=== PATIENT | male | born 1975 | race Two or more races ===

== ENCOUNTER 2019-01-24 14:28 | Emergency (ER) | payer SELFPAY ==
[~2019-01-24] VITALS: Ht 162.6 cm; Wt 66.7 kg
[2019-01-24] MEDS ORDERED: IV NORMAL SALINE 1,000ML 1,000 ML IV SCH (14:35)
[2019-01-24] MEDS ORDERED: IPRATRPIUM/ALBUTEROL 0.5/2.5MG 3 ML NEBU. NEB ONE (14:45)
--- NOTE | 2019-01-24 14:58 | EKG ---
[address] [address] Test Date: 2019-01-24 Test Time: 14:45:26 Pat Name: LILIYA LEDEZMA Department: Room: Gender: M Cherry Dipper: : 1975 Requested By: FREDY SHAFFER Order Number: [id number] Reading MD: Jeison Sanchez Measurements Intervals [place] Rate: 50 P: 55 PA: 168 QRS: 51 QRSD: 88 T: 19 QT: 420 QTc: 382 Interpretive Statements SINUS RHYTHM Electronically Signed On 01-28-2019 11:06:53 PROCESS LINE OPERATOR by Jeison Sanchez
--- NOTE | 2019-01-24 15:02 | RAD ---
EXAM: CHEST 1 VIEW History: Drug overdose COMPARISON: None available. TECHNIQUE: Single portable radiograph of the chest FINDINGS: The cardiac silhouette is unremarkable. The lungs are clear bilaterally. The costophrenic sulci are clear and well demarcated. IMPRESSION: No radiographic evidence of an acute cardiopulmonary process. Electronically signed by: James Contreras MD (01/24/2019 2:59 PM) [facility]
[2019-01-24] MEDS ORDERED: ALBU2.5V8 INH (15:34)
[2019-01-24] MEDS ORDERED: BENZ100C PO (15:34)
[2019-01-24] MEDS ORDERED: AZIT250T PO (15:34)
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
[2019-01-24 15:50] VITALS: BP 107/68
== END 2019-01-24 15:50 | disposition left against medical advice (07) ==
LOC: ER 14:28
DX: T40.2X1A Poisoning by other opioids, accidental (unintentional), initial encounter (principal); T42.4X1A Poisoning by benzodiazepines, accidental (unintentional), initial encounter; R40.20 Unspecified coma; G93.89 Other specified disorders of brain; J20.9 Acute bronchitis, unspecified; G89.29 Other chronic pain; M25.511 Pain in right shoulder; F17.210 Nicotine dependence, cigarettes, uncomplicated; Y92.098 Other place in other non-institutional residence as the place of occurrence of the external cause
CPT/HCPCS: 71045; 93005; 94640; 99284; J7620

== ENCOUNTER 2020-06-06 12:24 | Inpatient (IN) | payer MEDICAID ==
[~2020-06-06] VITALS: Ht 160 cm; Wt 57.5 kg
[~2020-06-06 12:24] MED LIST: ALBU2.5V8 INH; ALPR1TAB2 PO; AMOX500T PO; AZIT250T PO; BENZ100C PO; DICL50TA4 PO; METH10TA2 PO; OXYC30TA64 PO
[2020-06-06] MEDS ORDERED: IV NORMAL SALINE 1,000ML 1,000 ML IV SCH ×2 (13:28→18:29)
[2020-06-06] MEDS ORDERED: HALOPERIDOL LACT 5 MG/ML VIAL. IVP ONE (13:45)
[2020-06-06 14:03] LABS: BASO # 0.1 x10^3/uL (0.0-0.2); BASO % 1 % (0-3); EOS % 0 % (0-3); HEMATOCRIT 44.3 % (39.0-53.0); HEMOGLOBIN 15.1 g/dL (13.0-17.5); LYMPH # 2.5 x10^3/uL (1.0-4.8); LYMPH % 20 % (24-48); MEAN CORPUSCULAR HEMOGLOBIN 30 pg (25-35); MEAN CORPUSCULAR HGB CONC 34 g/dL (31-37); MEAN CORPUSCULAR VOLUME 88 fL (79-100); MONO # 1.2 x10^3/uL (0.0-1.1); MONO % 9 % (0-9); NEUT # 8.7 x10^3uL (1.8-7.7); NEUT % 70 % (31-73); PLATELET COUNT 280 x10^3/uL (140-400); RED BLOOD COUNT 5.02 x10^6/uL (4.30-5.70); RED CELL DISTRIBUTION WIDTH 13.9 % (11.5-14.5); WHITE BLOOD COUNT 12.5 x10^3/uL (4.0-11.0)
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
[2020-06-06 14:15] LABS: CALCIUM 8.8 mg/dL (8.5-10.1); CREATININE 1.1 mg/dL (0.7-1.3); GFR 72.1; POTASSIUM 3.6 mmol/L (3.5-5.1)
[2020-06-06 14:19] LABS: ACETAMIN < 2.0 mcg/mL (10-30); ETHANOL < 10 mg/dL (0-10); SALIC < 2.8 mg/dL (2.8-20.0)
[2020-06-06 14:20] LABS: ALBUMIN 3.4 g/dL (3.4-5.0); DIRECT BILIRUBIN 0.5 mg/dL (0.0-0.2); MAGNESIUM 2.4 mg/dL (1.8-2.4); TOTAL BILIRUBIN 1.6 mg/dL (0.2-1.0); TOTAL PROTEIN 6.4 g/dL (6.4-8.2)
[2020-06-06 14:53] LABS: BARBITURATES NEG (NEG); BENZODIAZEPINES NEG (NEG); CANNABINOIDS NEG (NEG); COCAINE NEG (NEG); METHADONE NEG (NEG); OPIATES POS (NEG); PHENCYCLIDINE NEG (NEG)
[2020-06-06 14:56] LABS: AMPHETAMINE/METHAMPHETAMINE NEG (NEG)
[2020-06-06 15:05] LABS: BILIRUBIN,URINE NEG (NEG); CLARITY,URINE HAZY; COLOR,URINE AMBER; GLUCOSE,URINE 500 mg/dL (NEG); NITRITE,URINE POS (NEG)
[2020-06-06 15:09] LABS: AMORPHOUS SEDIMENT,UR PRESENT /HPF; BACTERIA,URINE FEW /HPF (0-FEW); HYALINE CASTS, URINE OCC /HPF; SQUAMOUS EPITHELIAL CELL,UR OCC /LPF
[2020-06-06] MEDS ORDERED: cefTRIAXone SODIUM 1 GM VIAL ONE (16:33)
[2020-06-06] MEDS ORDERED: IV NORMAL SALINE 50ML 50 ML ONE (16:33)
[2020-06-06] MEDS ORDERED: ZIPRASIDONE IM 20 MG VIAL. IM ONE (16:45)
[2020-06-06] MEDS ORDERED: ONDANSETRON PF 4 MG/2 ML VIAL. IVP PRN ×2 (17:15→18:30)
[2020-06-06] MEDS: IV NORMAL SALINE 1,000ML 1,000 ML IV SCH ×2 (18:41→21:01)
[2020-06-06] MEDS: HALOPERIDOL LACT 5 MG/ML VIAL. IVP PRN (19:59)
[2020-06-06 21:01] VITALS: BP 153/86
[2020-06-06 22:01] VITALS: BP 149/56
--- NOTE | 2020-06-06 22:08 | PDOC ---
Exam Note: Jerrod Note: Please also refer to the separate dictated note~for this date of service dictated separately.~Patient seen individually. Discussed the patient with Nursing staff reviewed the chart.~Reviewed interim history and current functioning. Reviewed vital signs,~Labs/ Radiology~and current medications noted below. Continue current treatment with the changes noted in the dictated addendum note Assessment: Vital Signs/I&O: Vital Signs Date Time Temp Pulse Resp B/P (MAP) Pulse Ox O2 Delivery O2 Flow Rate FiO2 06/06/20 21:01 98 26 153/86 (108) Room Air 06/06/20 20:00 98.5 06/06/20 19:00 95 Labs: Laboratory Tests Test 06/06/20 11:23 06/06/20 13:47 06/06/20 16:29 Urine Collection Type Unknown Urine Color [place] Urine Clarity Hazy Urine pH 5.5 Urine Specific [place] 1.025 Urine Protein Neg (NEG-TRACE) Urine Glucose (UA) 500 mg/dL (NEG) Urine Ketones (Stick) Trace mg/dL (NEG) Urine Blood Neg (NEG) Urine Nitrite Pos (NEG) Urine Bilirubin Neg (NEG) Urine Urobilinogen Dipstick 2.0 mg/dL (0.2 mg/dL) Urine Leukocyte Esterase Neg (NEG) Urine RBC 1-2 /HPF (0-2) Urine WBC 1-4 /HPF (0-4) Urine Squamous Epithelial Cells Occ /LPF Urine Amorphous Sediment Present /HPF Urine Bacteria Few /HPF (0-FEW) Urine Hyaline Casts Occ /HPF Urine Mucus Slight /LPF Urine Opiates Screen Pos (NEG) Urine Methadone Screen Neg (NEG) Urine Barbiturates Neg (NEG) Urine Phencyclidine Screen Neg (NEG) Urine Amphetamine/Methamphetamine Neg (NEG) Urine Benzodiazepines Screen Neg (NEG) Urine Cocaine Screen Neg (NEG) Urine Cannabinoids Screen Neg (NEG) Urine Ethyl Alcohol Neg (NEG) White Blood Count 12.5 x10^3/uL (4.0-11.0) H Red Blood Count 5.02 x10^6/uL (4.30-5.70) Hemoglobin 15.1 g/dL (13.0-17.5) Hematocrit 44.3 % (39.0-53.0) Mean Corpuscular Volume 88 fL (79-100) Mean Corpuscular Hemoglobin 30 pg (25-35) Mean Corpuscular Hemoglobin Concent 34 g/dL (31-37) Red Cell Distribution Width 13.9 % (11.5-14.5) Platelet Count 280 x10^3/uL (140-400) Neutrophils (%) (Auto) 70 % (31-73) Lymphocytes (%) (Auto) 20 % (24-48) L Monocytes (%) (Auto) 9 % (0-9) Eosinophils (%) (Auto) 0 % (0-3) Basophils (%) (Auto) 1 % (0-3) Neutrophils # (Auto) 8.7 x10^3uL (1.8-7.7) H Lymphocytes # (Auto) 2.5 x10^3/uL (1.0-4.8) Monocytes # (Auto) 1.2 x10^3/uL (0.0-1.1) H Eosinophils # (Auto) 0.0 x10^3/uL (0.0-0.7) Basophils # (Auto) 0.1 x10^3/uL (0.0-0.2) Prothrombin Time 11.6 SEC (9.4-11.4) H Prothrombin Time INR 1.1 (0.9-1.1) Activated Partial Thromboplast Time 29 SEC (23-33) Sodium Level 140 mmol/L (136-145) Potassium Level 3.6 mmol/L (3.5-5.1) Chloride Level 102 mmol/L (98-107) Carbon Dioxide Level 30 mmol/L (21-32) Anion Gap 8 (6-14) Blood Urea Nitrogen 14 mg/dL (8-26) Creatinine 1.1 mg/dL (0.7-1.3) Estimated GFR (Cockcroft-Gault) 72.1 Glucose Level 171 mg/dL (70-99) H Calcium Level 8.8 mg/dL (8.5-10.1) Magnesium Level 2.4 mg/dL (1.8-2.4) Total Bilirubin 1.6 mg/dL (0.2-1.0) H Direct Bilirubin 0.5 mg/dL (0.0-0.2) H Aspartate Amino Transferase (AST) 116 U/L (15-37) H Alanine Aminotransferase (ALT) 233 U/L (16-63) H Alkaline Phosphatase 80 U/L (46-116) Total Protein 6.4 g/dL (6.4-8.2) Albumin 3.4 g/dL (3.4-5.0) Salicylates Level < 2.8 mg/dL (2.8-20.0) L Salicylate Last Dose Date Unknown Salicylate Last Dose Time Unknown Acetaminophen Level < 2.0 mcg/mL (10-30) L Acetaminophen Last Dose Date Unknown Acetaminophen Last Dose Time Unknown Ethyl Alcohol Level < 10 mg/dL (0-10) Lactic Acid Level 2.2 mmol/L (0.4-2.0) H Current Medications: Meds: Current Medications Medications (Trade) Dose Ordered Sig/Kathy Route PRN Reason Start Time Stop Time Status Last Admin Dose Admin Sodium Chloride 1,000 ml @ 1,000 mls/hr Q1H IV 06/06/20 13:28 06/06/20 14:27 DC 06/06/20 13:48 Haloperidol Lactate (Haldol) 5 mg 1X ONCE IVP 06/06/20 13:45 06/06/20 13:46 DC 06/06/20 13:50 Lorazepam (Ativan Inj) 2 mg 1X ONCE IVP 06/06/20 14:15 06/06/20 14:16 DC 06/06/20 14:15 Lorazepam (Ativan Inj) 2 mg 1X ONCE IVP 06/06/20 15:00 06/06/20 15:01 DC 06/06/20 15:03 Ceftriaxone Sodium 1 gm/ Sodium Chloride 50 ml @ 100 mls/hr 1X ONCE IV 06/06/20 16:30 06/06/20 16:59 DC 06/06/20 16:36 Ziprasidone (Geodon Im) 20 mg 1X ONCE IM 06/06/20 16:45 06/06/20 16:46 DC 06/06/20 16:55 Sodium Chloride 1,000 ml @ 125 mls/hr Q8H IV 06/06/20 17:09 06/07/20 17:08 06/06/20 21:01 Haloperidol Lactate (Haldol) 5 mg PRN Q2HR PRN IVP agitation 06/06/20 18:30 06/06/20 19:59 Lorazepam (Ativan Inj) 2 mg [id number] PRN IVP ANXIETY / AGITATION 06/06/20 18:30 06/06/20 19:19 DC 06/06/20 18:41 Lorazepam (Ativan Inj) 4 mg PRN Q1HR PRN IVP ANXIETY / AGITATION 06/06/20 18:30 06/06/20 21:01 I have reviewed the current psychotropics carefully including drug interactions. Risk benefit ratio favors no change other than as noted in my dictated progress note. Diagnosis: Problems: (1) UTI (urinary tract infection) (2) Acute psychosis (3) Drug-seeking behavior ZULMA SALAS MD Jun 06, 2020 22:08
[2020-06-06 23:00] VITALS: BP 136/91
[2020-06-07] VITALS (22 sets, daily range): BP systolic 113–167; BP diastolic 64–105
[2020-06-07] MEDS: IV NORMAL SALINE 1,000ML 1,000 ML IV SCH (05:30)
[2020-06-07 06:40] LABS: BASO # 0.1 x10^3/uL (0.0-0.2); BASO % 1 % (0-3); EOS # 0.2 x10^3/uL (0.0-0.7); EOS % 1 % (0-3); HEMATOCRIT 43.4 % (39.0-53.0); HEMOGLOBIN 14.8 g/dL (13.0-17.5); LYMPH # 2.1 x10^3/uL (1.0-4.8); LYMPH % 18 % (24-48); MEAN CORPUSCULAR HEMOGLOBIN 30 pg (25-35); MEAN CORPUSCULAR HGB CONC 34 g/dL (31-37); MEAN CORPUSCULAR VOLUME 89 fL (79-100); MONO % 9 % (0-9); NEUT # 8.5 x10^3uL (1.8-7.7); NEUT % 72 % (31-73); PLATELET COUNT 238 x10^3/uL (140-400); RED BLOOD COUNT 4.89 x10^6/uL (4.30-5.70); RED CELL DISTRIBUTION WIDTH 14.1 % (11.5-14.5)
[2020-06-07 06:50] LABS: CREATININE 1.1 mg/dL (0.7-1.3); GFR 72.1; POTASSIUM 3.1 mmol/L (3.5-5.1)
[2020-06-07] MEDS: HALOPERIDOL LACT 5 MG/ML VIAL. IVP PRN ×3 (07:24→12:56)
[2020-06-07] MEDS: POTASSIUM CHLORIDE 10MEQ 100 ML IV SCH ×4 (08:26→11:15)
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
[2020-06-08] VITALS (16 sets, daily range): BP systolic 104–142; BP diastolic 60–84
--- NOTE | 2020-06-08 00:12 | CONS ---
DATE OF CONSULTATION: REFERRING PHYSICIAN: Dr. Donnelly. REASON FOR CONSULTATION: Acute mental status changes. HISTORY OF PRESENT ILLNESS: This is a 45-year-old right-handed male who was admitted through Emergency Room after he became very agitated, hallucinating visually and auditory. The patient apparently has been using heroin, but he ran out about 2 weeks ago. EMS was called by his and transferred the patient to Emergency Room for further evaluation. The patient was very psychotic. It was reported that on 06/02/2020, the patient was seen in the Emergency Room with aggressive behavior changes. He was tried to break into the house today, so the police was called by the neighbors and transferred the patient to Emergency Room for his psychiatric behavior. The patient did not recall the events. Initially, the patient was suffering from shoulder pain, for which he required administration of oxycodone. He ran out of oxycodone a few weeks ago. Therefore, he started taking heroin. It was reported that the patient tried to commit suicide by hanging himself with the bedsheet, but he did not complete the attempt. Currently, the patient has been sedated with Haldol and Ativan for his aggressive behavior. He is not able to communicate properly or responding to verbal commands. PAST MEDICAL HISTORY: Significant for chronic pain and addiction to narcotics, urinary tract infections, history of drug abuse. FAMILY HISTORY: Not obtainable. SOCIAL HISTORY: Not obtainable. ALLERGIES: No known drug allergies. CURRENT MEDICATIONS: In the hospital include antibiotic IV ceftriaxone 1 gram daily, Haldol, lorazepam, Zofran for nausea. REVIEW OF SYSTEMS: Not obtainable. PHYSICAL EXAMINATION: GENERAL: Well-developed, well-nourished male, not in acute distress. He weighs 58.7 kilos. VITAL SIGNS: Blood pressure 125/67, respiratory rate 20, pulse is 75, oxygen saturation is 100% on room air, and temperature 98. HEENT: Normocephalic, atraumatic, otherwise unremarkable. NECK: Supple. Negative for carotid bruit, lymphadenopathy or thyromegaly. LUNGS: Clear to A and P. CARDIOVASCULAR: Regular rate and rhythm, normal S1, S2. ABDOMEN: Soft. Bowel sounds positive. EXTREMITIES: Negative for cyanosis, clubbing or edema. NEUROLOGICAL EXAM: Mental Status: The patient is sedated. He is not able to provide any information. Further evaluation is limited. Cranial Nerves: There is no facial motor or sensory deficit. Hearing appeared to be intact. Further evaluation is limited. Motor examination: No focal muscle bulk was seen. The tone is normal. Difficult to evaluate his strengths as the patient is not cooperative. Sensory examination revealed diminished pinprick and light touch senses throughout the lower extremities in all dermatomes. Deep tendon reflexes were symmetric and hypoactive with absent Achilles responses. Gait not tested at this time. No neuro imaging has been performed as the patient was very agitated. LABORATORY DATA: CBC revealed white blood cells of 12,000, hemoglobin 12.9 with similar 14.8, platelet count is 258,000. Chemistry revealed sodium 142, potassium 3.1, chloride 105, CO2 27, BUN 9, creatinine 1.1, glucose 91, calcium 8. T4 is high at 14.7. Urinalysis positive for nitrites and negative for urine leukocyte esterase. Coagulation is normal. Urine drug screen is positive for opiates. IMPRESSION: 1. Acute encephalopathy, presented with acute psychosis and suicidal ideation, rule out opiate or substance abuse dependency versus withdrawal. 2. Hypokalemia. 3. Multiple psychiatric problems including suicidal ideations, history of anxiety and possible depression complicated with intermittent psychosis. RECOMMENDATIONS: 1. We will continue with current management initiated by Dr. Donnelly. 2. Continue with current psychiatric care initiated by Dr. Harrington. M Landon BAEZA MD DR: DENISE/anthony JOB#: [id number] / [id number]
[2020-06-08 08:19] LABS: ALBUMIN 2.7 g/dL (3.4-5.0); ALBUMIN/GLOBULIN RATIO 0.9 (1.0-1.7); CREATININE 0.9 mg/dL (0.7-1.3); GFR 90.8; POTASSIUM 3.3 mmol/L (3.5-5.1); TOTAL BILIRUBIN 1.6 mg/dL (0.2-1.0); TOTAL PROTEIN 5.6 g/dL (6.4-8.2)
[2020-06-08 08:55] LABS: BASO % 1 % (0-3); EOS % 2 % (0-3); HEMOGLOBIN 14.7 g/dL (13.0-17.5); LYMPH # 1.4 x10^3/uL (1.0-4.8); LYMPH % 17 % (24-48); MEAN CORPUSCULAR HEMOGLOBIN 30 pg (25-35); MEAN CORPUSCULAR HGB CONC 34 g/dL (31-37); MEAN CORPUSCULAR VOLUME 89 fL (79-100); MONO # 0.6 x10^3/uL (0.0-1.1); MONO % 8 % (0-9); NEUT # 5.7 x10^3uL (1.8-7.7); NEUT % 71 % (31-73); PLATELET COUNT 208 x10^3/uL (140-400); RED BLOOD COUNT 4.86 x10^6/uL (4.30-5.70); RED CELL DISTRIBUTION WIDTH 13.5 % (11.5-14.5)
[2020-06-08 08:56] LABS: BASO # 0.1 x10^3/uL (0.0-0.2); EOS # 0.1 x10^3/uL (0.0-0.7)
--- NOTE | 2020-06-08 09:12 | PN ---
DATE: 06/08/2020 ATTENDING PHYSICIAN: Dr. Eldridge. CHIEF COMPLAINT: Bizarre behavior, psychosis, agitation. SUBJECTIVE: He is calmer today. He is still groggy from the sedation. OBJECTIVE FINDINGS: VITAL SIGNS: Her blood pressure today is 142/70 mmHg, pulse is 69 and regular, temperature 98.5 degrees Fahrenheit, and his room air saturations are 98%. HEENT: The head was without trauma. Pupils are reactive. Sclerae are nonicteric. Oropharynx clear. No stridor. NECK: Supple. LUNGS: Shallow respirations otherwise clear. CARDIOVASCULAR: Showed distant heart tones. No gallops. Peripheral pulses are palpable full. ABDOMEN: Soft, scaphoid, nontender, no organomegaly. Bowel sounds are hypoactive. EXTREMITIES: Showed no cyanosis or edema. NEUROLOGIC: The patient is obtunded. He is less agitated, combative. He is still requiring soft restraints to prevent self harm. ASSESSMENT: 1. A 45-year-old gentleman with acute psychosis related to drug use and the narcotic withdrawal. 2. Opioid addiction. 3. Opioid withdrawal. 4. Chronic pain syndrome. 5. Aggressive behavior with potential harm to medical staff himself, requiring restraints. PLAN: 1. We will try to offer him menu and try to get something to eat. 2. IVs have been capped. 3. Blood culture is still pending. 4. Empiric antibiotics. 5. P.r.n. Haldol and Ativan to help calm him down. CHAS ELDRIDGE MD DR: FAYE/anthony JOB#: [id number] / [id number]
[2020-06-08] MEDS: NICOTINE 21MG PATCH. TD SCH (17:14)
--- NOTE | 2020-06-08 18:27 | PN ---
DATE: SUBJECTIVE: The patient denies any new medical or neurological complaints; however, he has been less agitated and less required of Haldol and sedation throughout the day and last night. He is more cooperative. He denies headaches, visual disturbances, chest pain, shortness of breath or palpitation. OBJECTIVE: GENERAL: Well-developed and well-nourished male, not in acute distress. VITAL SIGNS: Blood pressure 128/79, respiratory rate 20, pulse is 85, temperature 98.1, oxygen saturation 100% on room air. HEENT: Normocephalic, atraumatic, otherwise unremarkable. NECK: Supple. Negative for carotid bruit, lymphadenopathy or thyromegaly. LUNGS: Clear to A and P. CARDIOVASCULAR: Regular rate and rhythm, normal S1, S2. ABDOMEN: Soft. Bowel sounds positive. EXTREMITIES: Negative for cyanosis, clubbing or edema. NEUROLOGICAL: Mental Status: The patient is alert and oriented x 2. The speech is fluent. There is no language dysfunction. Memory, judgment, and abstract thinking are fair. The patient denies hallucination or delusion. Cranial nerves are intact. No focal motor or sensory deficit. Deep tendon reflexes were symmetric and hypoactive with absent Achilles responses. Gait not tested. LABORATORY DATA: CBC revealed white blood cells of 8000, hemoglobin 14.7, hematocrit ____. Chemistry revealed a sodium of 139, potassium 3.3, chloride 104, CO2 of 27, BUN 9, creatinine 0.9, glucose is 79. Liver enzymes are elevated. IMPRESSION: 1. Acute encephalopathy, probably drug dependency or drug withdrawal - opiates. 2. Hypokalemia. 3. Elevated liver enzymes, suicidal ideation and attempt, depressions with intermittent psychosis. RECOMMENDATIONS: 1. Continue with current management initiated by Dr. Donnelly. Potassium supplement and continue with current care initiated by Dr. Harrington. 2. Avoid sedation as soon as possible. M Landon BAEZA MD DR: DENISE/anthony JOB#: [id number] / [id number]
[2020-06-09] VITALS (8 sets, daily range): BP systolic 120–152; BP diastolic 64–98
[2020-06-09 07:24] LABS: BASO % 1 % (0-3); EOS # 0.1 x10^3/uL (0.0-0.7); EOS % 2 % (0-3); HEMATOCRIT 42.7 % (39.0-53.0); HEMOGLOBIN 14.3 g/dL (13.0-17.5); LYMPH # 1.2 x10^3/uL (1.0-4.8); LYMPH % 18 % (24-48); MEAN CORPUSCULAR HEMOGLOBIN 30 pg (25-35); MEAN CORPUSCULAR HGB CONC 34 g/dL (31-37); MEAN CORPUSCULAR VOLUME 89 fL (79-100); MONO # 0.6 x10^3/uL (0.0-1.1); MONO % 10 % (0-9); NEUT # 4.6 x10^3uL (1.8-7.7); NEUT % 69 % (31-73); PLATELET COUNT 225 x10^3/uL (140-400); RED BLOOD COUNT 4.81 x10^6/uL (4.30-5.70); RED CELL DISTRIBUTION WIDTH 13.7 % (11.5-14.5); WHITE BLOOD COUNT 6.6 x10^3/uL (4.0-11.0)
[2020-06-09 07:32] LABS: CALCIUM 8.2 mg/dL (8.5-10.1); GFR 80.4; POTASSIUM 3.4 mmol/L (3.5-5.1)
[2020-06-09] MEDS: NICOTINE 21MG PATCH. TD SCH (09:00)
--- NOTE | 2020-06-09 13:01 | PN ---
DATE: SUBJECTIVE: The patient denies any new medical or neurological complaints. OBJECTIVE: GENERAL: Well-developed, well-nourished male, not in acute distress. VITAL SIGNS: Afebrile, temperature is 98.4, oxygen saturation 97% on room air, blood pressure 123/71, respiratory rate 18, pulse is 87 and regular. HEENT: Normocephalic, atraumatic, otherwise unremarkable. NECK: Supple. Negative for carotid bruit, lymphadenopathy or thyromegaly. LUNGS: Clear to A and P. CARDIOVASCULAR: Regular rate and rhythm, normal S1, S2. ABDOMEN: Soft. Bowel sounds positive. EXTREMITIES: Negative for cyanosis, clubbing or edema. NEUROLOGIC EXAM: Mental status: The patient is alert and oriented x 2. The speech is fluent. There is no language dysfunction. Memory, judgment, and abstract thinking are fair. The patient denies hallucination or delusion. Cranial nerves are intact. No focal motor or sensory deficit. The strength was 4/5 throughout. Sensory examination revealed normal pinprick, light touch senses throughout. Deep tendon reflexes were asymmetric and hypoactive with absent Achilles responses. Gait: The stance is steady. IMPRESSION: 1. Acute encephalopathy -- resolved. 2. Opiate dependency and withdrawal. 3. Recent urinary tract infections. 4. Multiple psychiatric problems include suicidal ideation and effect, rule out schizoaffective disorders with intermittent psychotic features. RECOMMENDATIONS: Would continue with current management initiated by Dr. Donnelly and continue with psychiatric care initiated by Dr. Harrington. The patient is neurologically stable. M Landon BAEZA MD DR: DENISE/anthony JOB#: [id number] / [id number]
--- NOTE | 2020-06-09 16:22 | DS ---
DATE OF DISCHARGE: HOSPITAL COURSE: The patient is a 45-year-old male patient who was admitted with bizarre behavior, psychosis, agitation, transpired that he according to him has been abusing heroin and that he was manifestation of acute narcotic withdrawal syndrome. He was seen in consultation by Dr. Harrington and also Dr. Asencio and basically was started also on antibiotic for possible urinary tract infection; however, urine culture was negative. When I saw him today, he was calm and quiet lucid, alert, oriented to time, place and person, although what he says at least about the availability of heroin in the streets, it does not make sense. He otherwise was hemodynamically stable, afebrile. All his lab works apart from slightly elevated total T4 were normal and therefore, a decision was made to discharge him home. PHYSICAL EXAMINATION: GENERAL: When I saw him this afternoon, he looked well and was clearly in no apparent respiratory distress. No pallor, jaundice, cyanosis or thyromegaly. No jugular venous distention. No limb edema. VITAL SIGNS: His heart rate was 87, blood pressure was 123/71, temperature was 98.4, respiratory rate was 18 and oxygen saturation was 97%. HEAD, EYES, EARS, NOSE AND THROAT: Showed normocephalic, atraumatic. NECK: Supple. HEART: Showed normal first and second heart sounds. No gallop or murmur. CHEST: Clear to auscultation. No crepitation or rhonchi. ABDOMEN: Distended, soft, nontender. NEUROLOGIC: He was awake, alert, responding appropriately. All cranial nerves are intact. He moves extremities without difficulty, ambulates without assistance or assistive devices. His intake was 4000, output was 1200. LABORATORY DATA: His lab work this morning showed a white cell count 6600, hemoglobin 14, hematocrit 42, MCV 89 and platelet count of 225,000. Serum sodium was 140, potassium 3.4, chloride 104, bicarbonate 29, anion gap of 7, BUN 10, creatinine 1, estimated GFR was 80 mL per minute. His glucose 166, calcium was 8.2. His total bilirubin, AST and ALT were elevated. Alkaline phosphatase was normal. Total protein was 5.6, albumin was 2.7. His prothrombin time was 11.6, INR 1.1, aPTT was 29. Urinalysis showed large amount of glucose, trace of ketones, negative for blood, positive for nitrite, negative for leukocyte esterase, 1-2 rbc's, 1-4 wbc's, very few bacteria. His toxic screen was positive for opiates. His urine culture was negative. DISCHARGE MEDICATIONS: He was discharged home to continue on trazodone 50 mg at bedtime. He also wanted to quit smoking, so I gave him a prescription for Nicoderm patches 21 mg topically once a day for 2 weeks, 14 mg once a day for 2 weeks, then 7 mg once a day for 2 weeks. FINAL DISCHARGE DIAGNOSES: Drug-induced acute encephalopathy, resolved, opiate dependency and withdrawal, probably schizoaffective disorder with intermittent psychotic features. NO FLORES MD DR: VIKTORIA/anthony JOB#: [id number] / [id number]
[2020-06-09] MEDS ORDERED: LACTOBACILLUS RHAMNOSUS GG 1 CAPSULE. PO SCH (21:00)
== END 2020-06-09 17:15 | disposition home or self-care (01) | DRG 92 ==
LOC: ER 12:24 → MERGE 17:00 → ICU 17:00
PROVIDERS: ADMIT Hospitalist; ATTEND Internal Medicine
DX: G92 Toxic encephalopathy (principal); F11.23 Opioid dependence with withdrawal; N39.0 Urinary tract infection, site not specified; R45.851 Suicidal ideations; E87.6 Hypokalemia; F25.9 Schizoaffective disorder, unspecified; G89.4 Chronic pain syndrome; T50.905A Adverse effect of unspecified drugs, medicaments and biological substances, initial encounter; Z76.5 Malingerer [conscious simulation]; Z87.440 Personal history of urinary (tract) infections; Z87.891 Personal history of nicotine dependence; F41.9 Anxiety disorder, unspecified; Z79.899 Other long term (current) drug therapy
CPT/HCPCS: 36415; 80048; 80053; 80076; 80307; 80329; 81001; 83605; 83735; 84436; 85025; 85610; 85730; 87040; 87086; 96361; 96365; 96372; 96375; G0480; J0696; J1630; J2060; J3480; J3486; 99285-25; J7030

== ENCOUNTER 2020-10-13 14:03 | Emergency (ER) | payer MEDICAID ==
[~2020-10-13] VITALS: Ht 162.6 cm; Wt 63.0 kg
[2020-10-13] MEDS ORDERED: NAPROXEN 500 MG TABLET PO ONE (14:30)
[2020-10-13] MEDS: GABAPENTIN 100 MG CAPSULE. PO ONE ×2 (14:30→14:57)
[2020-10-13] MEDS ORDERED: DIPH,PERTUSS(ACELL),TET VAC/PF 0.5 ML SYRINGE. VAX IM ONE (14:45)
--- NOTE | 2020-10-13 14:52 | RAD ---
Examination: VENOUS LOWER EXTREMITY RIGHT History: cellulitis RLE Comparison/Correlation: None Findings: Right lower extremity venous duplex ultrasound examination was performed. Compression and augmentation are utilized. Right common femoral vein, femoral vein, proximal profunda femoris, popliteal veins, great saphenous vein junction, and visualized calf veins are unremarkable with no evidence of DVT. Impression: No right lower extremity DVT. Electronically signed by: Mitchell Zazueta MD (10/13/2020 2:49 PM) [facility]
--- NOTE | 2020-10-13 15:21 | RAD ---
PROCEDURE: FOOT RIGHT 3V STUDY DATE: 10/13/2020 CLINICAL INDICATION / HISTORY: Reason: redness pain swelling after a scratch / Spl. Instructions: / History: . TECHNIQUE: AP, lateral and oblique views of the right foot. COMPARISON: None FINDINGS: No fracture or dislocation is identified. The bone density is normal. The joint space widths are maintained, and there are no erosions to suggest an inflammatory arthropathy. No soft tissue abnormality is seen. IMPRESSION: No acute osseous abnormality. Electronically signed by: Jovan Traylor MD (10/13/2020 3:18 PM) [id number]
[2020-10-13] MEDS ORDERED: SULF1TAB24 PO (15:45)
[2020-10-13] MEDS ORDERED: DICL50TA2 PO (15:45)
[2020-10-13] MEDS ORDERED: GABA-586 PO (15:45)
--- NOTE | 2020-10-13 15:45 | PHYS DOC ---
Past History Past Medical History: No Pertinent History Additional Past Medical Histor: chronic shoulder pain Past Surgical History: Appendectomy, Other Additional Past Surgical Histo: right shoulder, hernia Smoking: Cigarettes Alcohol Use: Occasionally Drug Use: Other Adult General Chief Complaint Chief Complaint: FOOT INJURY PAIN HPI HPI Patient is a 45-year-old male patient presenting to the ED today complaining of redness on top of the right foot that began 2 days ago after he scratched his foot at work. He works for a [employer]. Denies any fever. Review of Systems Review of Systems Constitutional: Denies fever or chills [] Musculoskeletal: Denies back pain or joint pain [] Integument: Reports redness on the right foot Neurologic: Denies headache, focal weakness or sensory changes [] All other systems were reviewed and found to be within normal limits, except as documented in this note. Current Medications Current Medications Current Medications Medications (Trade) Dose Ordered Sig/Kathy Start Time Stop Time Status Last Admin Dose Admin Diphtheria/ Pertussis/Tetanus Vacc (ADACEL TDap SYRINGE) 0.5 ml ONCE ONCE 10/13/20 14:45 10/13/20 14:46 DC 10/13/20 14:59 0.5 ML Gabapentin (Neurontin) 300 mg 1X ONCE 10/13/20 14:30 10/13/20 14:31 DC Naproxen (Naprosyn) 500 mg 1X ONCE 10/13/20 14:30 10/13/20 14:31 DC 10/13/20 14:57 500 MG Allergies Allergies Allergies Coded Allergies Type Severity Reaction Last Updated Verified No Known Drug Allergies 06/17/20 No Physical Exam Physical Exam Constitutional: Well developed, well nourished, no acute distress, non-toxic appearance. [] Skin: 2 scabbed abrasion noted on the right lateral foot, with redness on top of the right foot consistent with cellulitis, the area is warm and tender to touch. Slight redness noted on the right medial diop. Full range of motion to the right foot and toes. +2 right pedal pulse. Sensation intact to the right toes. Back: No tenderness, no CVA tenderness. [] Extremities: No tenderness, no cyanosis, no clubbing, ROM intact, no edema. [] Neurologic: Alert and oriented X 3, normal motor function, normal sensory function, no focal deficits noted. [] Psychologic: Affect normal, judgement normal, mood normal. [] Current Patient Data Vital Signs Vital Signs Date Time Temp Pulse Resp B/P (MAP) Pulse Ox O2 Delivery O2 Flow Rate FiO2 10/13/20 14:23 98.4 85 18 104/65 (78) 98 Room Air EKG EKG [] Radiology/Procedures Radiology/Procedures Yes []PROCEDURE: FOOT RIGHT 3V PROCEDURE: FOOT RIGHT 3V STUDY DATE: 10/13/2020 CLINICAL INDICATION / HISTORY: Reason: redness pain swelling after a scratch / Spl. Instructions: / History: . TECHNIQUE: AP, lateral and oblique views of the right foot. COMPARISON: None FINDINGS: No fracture or dislocation is identified. The bone density is normal. The joint space widths are maintained, and there are no erosions to suggest an inflammatory arthropathy. No soft tissue abnormality is seen. IMPRESSION: No acute osseous abnormality. Electronically signed by: Kalina Traylor MD (10/13/2020 3:18 PM) [id number] DICTATED AND SIGNED BY: KALINA TRAYLOR MD DATE: 10/13/20 1518 CC: [facility]; ANAIS ABDUL APRN; PCP,NO ~ PROCEDURE: VENOUS LOWER EXTREMITY RIGHT Examination: VENOUS LOWER EXTREMITY RIGHT History: cellulitis RLE Comparison/Correlation: None Findings: Right lower extremity venous duplex ultrasound examination was performed. Compression and augmentation are utilized. Right common femoral vein, femoral vein, proximal profunda femoris, popliteal veins, great saphenous vein junction, and visualized calf veins are unremarkable with no evidence of DVT. Impression: No right lower extremity DVT. Electronically signed by: Mitchell Robles MD (10/13/2020 2:49 PM) [facility] DICTATED AND SIGNED BY: MITCHELL ROBLES MD DATE: 10/13/20 1449 CC: [facility]; ANAIS ABDUL APRN; PCP,NO ~ Heart Score Risk Factors: Risk Factors: DM, Current or recent (<one month) smoker, HTN, HLP, family history of CAD, obesity. Risk Scores: Risk Factors: DM, Current or recent (<one month) smoker, HTN, HLP, family history of CAD, obesity. Course & Med Decision Making Course & Med Decision Making Pertinent Labs and Imaging studies reviewed. (See chart for details) This is a 45-year-old male patient presenting to the ED today with cellulitis on the right foot and slight cellulitis on the right diop. This occurred after he scratched his right foot at work. Right foot x-rays as well as venous Doppler of the right lower extremity negative for any acute findings. Tetanus was updated. Discharged on Bactrim. Provided return precautions. Discharged in stable condition Dragon Disclaimer Dragon Disclaimer This electronic medical record was generated, in whole or in part, using a voice recognition dictation system. Departure Departure: Impression: Primary Impression: Cellulitis of lower extremity Disposition: DC HOME SELF CARE/HOMELESS Condition: STABLE Referrals: PCP,NO (PCP) follow up with your doctor in 1-2 weeks Patient Instructions: Cellulitis Additional Instructions: You have cellulitis of the right lower extremity. Take the prescribed antibiotics until completed. Follow-up with your own doctor in 1 to 2 weeks. Come back to the ED at any point symptoms worsen Scripts Diclofenac Potassium (DICLOFENAC POTASSIUM) 50 Mg Tablet 1 TAB PO BID, #20 TAB 1 Refill Prov: ANAIS ABDUL APRN 10/13/20 Gabapentin (GABAPENTIN ) 300 Mg Capsule 300 MG PO TID for NEUROGENIC PAIN, #30 CAP Prov: ANAIS ABDUL APRN 10/13/20 Sulfamethoxazole/Trimethoprim (BACTRIM DS TABLET) 1 Each Tablet 1 TAB PO BID for 10 Days, #20 TAB 0 Refills Prov: ANAIS ABDUL APRN 10/13/20 Problem Qualifiers Primary Impression: Cellulitis of lower extremity Laterality: right Qualified Codes: L03.115 - Cellulitis of right lower limb ANAIS ABDUL APRN Oct 13, 2020 15:45
[2020-10-13 16:00] VITALS: BP 100/62
[2020-10-13] MEDS ORDERED: SMZ/TMP 800/160MG TABLET. PO ONE (16:00)
== END 2020-10-13 16:00 | disposition home or self-care (01) ==
LOC: ER 14:03
DX: S90.811A Abrasion, right foot, initial encounter (principal); L03.115 Cellulitis of right lower limb; F17.210 Nicotine dependence, cigarettes, uncomplicated; G89.29 Other chronic pain; X58.XXXA Exposure to other specified factors, initial encounter; Y93.89 Activity, other specified; Y92.89 Other specified places as the place of occurrence of the external cause; Y99.0 Civilian activity done for income or pay
CPT/HCPCS: 73630; 90471; 90715; 93971; 99284-25

== ENCOUNTER 2020-11-25 13:19 | Emergency (ER) | payer MEDICAID ==
[~2020-11-25] VITALS: Ht 162.6 cm; Wt 60.0 kg
[~2020-11-25 13:19] MED LIST changes: +DICL50TA2 PO; +GABA-586 PO; +SULF1TAB24 PO
--- NOTE | 2020-11-25 14:07 | PHYS DOC ---
Past History Past Medical History: No Pertinent History Additional Past Medical Histor: chronic shoulder pain Past Surgical History: Appendectomy, Other Additional Past Surgical Histo: HERNIA, SHOULDER Smoking: Cigarettes Alcohol Use: None Drug Use: Other General Adult EDM: Chief Complaint: SORE THROAT HPI: HPI: Patient is a 45-year-old male who presents with sore throat for 2 days. Patient states "I feels like I am swallowing glass ". Patient denies recent illness. Patient denies cough, fever, drainage or ear pain. Patient reports taking an antibiotic that he was prescribed a month ago for a skin infection. Denies taking any rnvt-hbb-[id number] medications for his sore throat. Review of Systems: Review of Systems: Constitutional: Denies fever or chills Eyes: Denies change in visual acuity HENT: Denies nasal congestion, reports sore throat Respiratory: Denies cough or shortness of breath Cardiovascular: Denies chest pain or edema GI: Denies abdominal pain, nausea, vomiting, bloody stools or diarrhea : Denies dysuria Musculoskeletal: Denies back pain or joint pain Integument: Denies rash Neurologic: Denies headache, focal weakness or sensory changes Endocrine: Denies polyuria or polydipsia Lymphatic: Denies swollen glands Psychiatric: Denies depression or anxiety Allergies: Allergies: Allergies Coded Allergies Type Severity Reaction Last Updated Verified No Known Drug Allergies 06/17/20 No Physical Exam: PE: Constitutional: Well developed, well nourished, no acute distress, non-toxic appearance. [] HENT: bilateral external ears normal, oropharynx moist, no oral exudates, able to manage secretions Eyes: PERRLA, EOMI, conjunctiva normal, no discharge. [] Neck: Normal range of motion, tenderness submandibular lymph nodes, no stridor Cardiovascular:Heart rate regular rhythm, no murmur [] Lungs & Thorax: Bilateral breath sounds clear to auscultation [] Abdomen: Bowel sounds normal, soft, no tenderness, no masses, no pulsatile masses. [] Skin: Warm, dry, no erythema, no rash. [] Back: No tenderness, no CVA tenderness. [] Extremities: No tenderness, no cyanosis, no clubbing, ROM intact, no edema. [] Neurologic: Alert and oriented X 3, normal motor function, normal sensory function, no focal deficits noted. [] Psychologic: Affect normal, judgement normal, mood normal. [] Current Patient Data: Vital Signs: Vital Signs Date Time Temp Pulse Resp B/P (MAP) Pulse Ox O2 Delivery O2 Flow Rate FiO2 11/25/20 13:40 96.1 78 18 101/64 (76) 96 Room Air EKG: EKG: [] Radiology/Procedures: Radiology/Procedures: [] Heart Score: Risk Factors: Risk Factors: DM, Current or recent (<one month) smoker, HTN, HLP, family history of CAD, obesity. Risk Scores: Score 0 - 3: 2.5% MACE over next 6 weeks - Discharge Home Score 4 - 6: 20.3% MACE over next 6 weeks - Admit for Clinical Observation Score 7 - 10: 72.7% MACE over next 6 weeks - Early Invasive Strategies Course & Med Decision Making: Course & Med Decision Making Pertinent Labs and Imaging studies reviewed. (See chart for details) []Patient is a 45-year-old male who presents with sore throat for 2 days. Patient states "I feels like I am swallowing glass ". Patient denies recent illness. Patient denies cough, fever, drainage or ear pain. Patient reports taking an antibiotic that he was prescribed a month ago for a skin infection. Denies taking any auog-nwa-mvfghlv medications for his sore throat. Will order rapid test to r/o strep. Rapid test was positive for strep. Will order 1 dose of dexamethasone in ER and sent home with penicillin. Dragon Disclaimer: Dragon Disclaimer: This electronic medical record was generated, in whole or in part, using a voice recognition dictation system. Departure Departure: Impression: Primary Impression: Strep pharyngitis Disposition: 01 DC HOME SELF CARE/HOMELESS Condition: GOOD Referrals: PCP,NO (PCP) Patient Instructions: Strep Throat, [id number] Additional Instructions: EMERGENCY DEPARTMENT GENERAL DISCHARGE INSTRUCTIONS Thank you for coming to [facility] (ED) today and trusting us with you care. We trust that you had a positivie experience in our Emergency Department. If you wish to speak to the department management, you may call the director at [phone]. YOUR FOLLOW UP INSTRUCTIONS ARE FOLLOWS: 1. Do you have a private Doctor? If you do not have a private doctor, please ask for a resource list of physicians or clinics that may be able to assist you with follow up care. 2. The Emergency Physician has interpreted your x-rays. The X-Ray specialist will also review them. If there is a change in the findings, you will be notified in 48 hours when at all possible. 3. A lab test or culture has been done, your results will be reviewed and you will be notified if you need a change in treatment. ADDITIONAL INSTRUCTIONS AND INFORMATION: 1. Your care today has been supervised by a physician who is specially trained in emergency care. Many problems require more than one evaluation for a complete diagnosis and treatment. We recommend that you schedule your follow up appointment as recommended to ensure complete treatment of you illness or injury. If you are unable to obtain follow up care and continue to have a problem, or if your condition worsens, we recommend that you return to the ED. 2. We are not able to safely determine your condition over the phone nor are we able to give sound medical advice over the phone. For these safety reasons, if you call for medical advice we will ask you to come to the ED for further evaluation. 3. If you have any questions regarding these discharge instructions please call the ED at [phone]. SAFETY INFORMATION: In the interest of safety, wellness, and injury prevention; we encourage you to wear your sealbelt, if you smoke; quite smoking, and we encourage family to use a protective helmet for bicycling and other sporting events that present an increased risk for head injury. IF YOUR SYMPTOMS WORSEN OR NEW SYMPTOMS DEVELOP, OR YOU HAVE CONCERNS ABOUT YOUR CONDITION; OR IF YOUR CONDITION WORSENS WHILE YOU ARE WAITING FOR YOUR FOLLOW UP APPOINTMENT; EITHER CONTACT YOUR PRIMARY CARE DOCTOR, THE PHYSICIAN WHOSE NAME AND NUMBER YOU WERE GIVEN, OR RETURN TO THE ED IMMEDIATELY. Scripts Penicillin V Potassium (PENICILLIN V POTASSIUM) 500 Mg Tablet 500 MG PO BID for strep throat for 10 Days, #20 TAB Prov: CUONG BLAS APRN 11/25/20 CUONG BLAS APRN Nov 25, 2020 14:07
[2020-11-25] MEDS ORDERED: DEXAMETHASONE 4 MG TABLET PO ONE (14:45)
[2020-11-25] MEDS ORDERED: PENI500T PO ×2 (14:49→14:59)
[2020-11-25] MEDS ORDERED: DEXAMETHASONE 4 MG TABLET ONE (14:50)
[2020-11-25 15:00] VITALS: BP 106/54
== END 2020-11-25 15:06 | disposition home or self-care (01) ==
LOC: ER 13:19
DX: J02.0 Streptococcal pharyngitis (principal); B95.4 Other streptococcus as the cause of diseases classified elsewhere; G89.29 Other chronic pain; F17.210 Nicotine dependence, cigarettes, uncomplicated; Z98.890 Other specified postprocedural states; Z90.89 Acquired absence of other organs
CPT/HCPCS: 87880; 99283; J8540

== ENCOUNTER 2021-05-30 14:36 | Emergency (ER) | payer MEDICAID ==
[~2021-05-30] VITALS: Ht 162.6 cm; Wt 60.0 kg
[~2021-05-30 14:36] MED LIST changes: +PENI500T PO
--- NOTE | 2021-05-30 15:36 | PHYS DOC ---
Past History Past Medical History: No Pertinent History Additional Past Medical Histor: chronic shoulder pain Past Surgical History: Appendectomy, Other Additional Past Surgical Histo: HERNIA, SHOULDER Smoking: Cigarettes Alcohol Use: None Drug Use: Other General Adult EDM: Chief Complaint: LLQ pain HPI: HPI: 46-year-old male presents with left-sided pain. Patient states that the pain started 2 days ago while he was simply walking home from the gas station. The pain has increased over the last couple of days. It is worse with movement. It radiates down into his left thigh. Patient has a history of hernias in the past with surgical repair. He has been eating and drinking okay. He denies dysuria, constipation, diarrhea. He denies any overuse extra strenuous activity. He denies fever or chills. Review of Systems: Review of Systems: Constitutional: Denies fever or chills Eyes: Denies change in visual acuity HENT: Denies nasal congestion or sore throat Respiratory: Denies cough or shortness of breath Cardiovascular: Denies chest pain or edema GI: Left lower quadrant abdominal pain. Denies nausea, vomiting, bloody stools or diarrhea : Denies dysuria Musculoskeletal: Denies back pain or joint pain Integument: Denies rash Neurologic: Denies headache, focal weakness or sensory changes Endocrine: Denies polyuria or polydipsia Lymphatic: Denies swollen glands Psychiatric: Denies depression or anxiety Allergies: Allergies: Allergies Coded Allergies Type Severity Reaction Last Updated Verified No Known Drug Allergies 06/17/20 No Physical Exam: PE: Constitutional: Well developed, well nourished, no acute distress, non-toxic appearance. [] HENT: Normocephalic, atraumatic, bilateral external ears normal, oropharynx moist, no oral exudates, nose normal. [] Eyes: PERRLA, EOMI, conjunctiva normal, no discharge. [] Neck: Normal range of motion, no tenderness, supple, no stridor. [] Cardiovascular:Heart rate regular rhythm, no murmur [] Lungs & Thorax: Bilateral breath sounds clear to auscultation [] Abdomen: Bowel sounds normal, soft, LLQ tenderness, no masses, no pulsatile mas ses. Inguinal exam deferred due to the patient being in a nonprivate room.[] Skin: Warm, dry, no erythema, no rash. [] Back: No tenderness, no CVA tenderness. [] Extremities: No tenderness, no cyanosis, no clubbing, ROM intact, no edema. [] Neurologic: Alert and oriented X 3, normal motor function, normal sensory function, no focal deficits noted. [] Psychologic: Affect normal, judgement normal, mood normal. [] Current Patient Data: Vital Signs: Vital Signs Date Time Temp Pulse Resp B/P (MAP) Pulse Ox O2 Delivery O2 Flow Rate FiO2 05/30/21 14:36 98.8 90 18 104/65 99 Room Air EKG: EKG: Sinus rhythm, rate 79, normal axis, no ST elevation or depression. [] Radiology/Procedures: Radiology/Procedures: [] Impressions: CT abdomen pelvis without contrast. HISTORY: Left lower quadrant pain, history of hernias CT scan the abdomen pelvis was done without contrast. Lung bases are clear. There is no effusion. A liver lesion is not identified. There is no calcified gallstone or gallbladder wall thickening. Spleen is upper normal in size. There is no mass or hydronephrosis or calculus in the right kidney. There is a 2 mm calculus in the lower left kidney. There are multiple phleboliths in the pelvis. There is no definite ureteral calculus. There is no bowel obstruction. There is moderate stool in colon. There is minimal diverticulosis, I do not see an obvious diverticulitis but lack of fat limits evaluation. Appendix is not identified. There is mild scoliosis in the lumbar spine. There is degenerative disc disease at L4-5 in the lumbar spine. IMPRESSION: 1. Intrarenal calculus left kidney. 2. No definite ureteral calculus noted. 3. Moderate stool in the colon. 4. No small bowel obstruction. PQRS Compliance Statement: One or more of the following individualized dose reduction techniques were utilized for this examination: 1. Automated exposure control 2. Adjustment of the mA and/or kV according to patient size 3. Use of iterative reconstruction technique Electronically signed by: Vilma Palacio MD (05/30/2021 5:27 PM) [facility] DICTATED AND SIGNED BY: VILMA PALACIO MD DATE: 05/30/21 1720 CC: CHRISTI COREA DO; PCP,NO ~MTH0 0 Heart Score: C/O Chest Pain: N/A Risk Factors: Risk Factors: DM, Current or recent (<one month) smoker, HTN, HLP, family history of CAD, obesity. Risk Scores: Score 0 - 3: 2.5% MACE over next 6 weeks - Discharge Home Score 4 - 6: 20.3% MACE over next 6 weeks - Admit for Clinical Observation Score 7 - 10: 72.7% MACE over next 6 weeks - Early Invasive Strategies Course & Med Decision Making: Course & Med Decision Making Pertinent Labs and Imaging studies reviewed. (See chart for details) The patient's CT shows a renal stone, but no ureteral stones or obstructive stones. No obvious hernia. He does have moderate stool burden. His discomfort could be due to constipation. I have advised a bowel cleanout. He is stable for discharge at this time. [] Dragon Disclaimer: Dragon Disclaimer: This electronic medical record was generated, in whole or in part, using a voice recognition dictation system. Departure Departure: Impression: Primary Impression: Constipation by delayed colonic transit Disposition: HOME / SELF CARE / HOMELESS Condition: STABLE Referrals: PCP,NO (PCP) Patient Instructions: Constipation, Adult, [id number] Additional Instructions: You should drink 1 full bottle of magnesium citrate when you get home. This should induce several bowel movements to clean out your bowels. This should im prove your pain significantly. CHRISTI COREA DO May 30, 2021 15:36
[2021-05-30] MEDS ORDERED: ONDANSETRON PF 4 MG/2 ML VIAL. IVP ONE (15:45)
[2021-05-30] MEDS ORDERED: IV NORMAL SALINE 1,000ML 1,000 ML IV ONE (15:45)
[2021-05-30] MEDS ORDERED: MORPHINE SULFATE 4 MG/ML DISP.SYRIN. IV ONE (15:45)
[2021-05-30] MEDS ORDERED: IOHEXOL 300 MG/ML 75 ML VIAL. IV ONE (16:00)
--- NOTE | 2021-05-30 17:29 | RAD ---
CT abdomen pelvis without contrast. HISTORY: Left lower quadrant pain, history of hernias CT scan the abdomen pelvis was done without contrast. Lung bases are clear. There is no effusion. A l iver lesion is not identified. There is no calcified gallstone or gallbladder wall thickening. Spleen is upper normal in size. There is no mass or hydronephrosis or calculus in the right kidney. There i s a 2 mm calculus in the lower left kidney. There are multiple phleboliths in the pelvis. There is no definite ureteral calculus. There is no bowel obstruction. There is moderate stool in colon. There i s minimal diverticulosis, I do not see an obvious diverticulitis but lack of fat limits evaluation. A ppendix is not identified. There is mild scoliosis in the lumbar spine. There is degenerative disc di sease at L4-5 in the lumbar spine. IMPRESSION: 1. Intrarenal calculus left kidney. 2. No definite ureteral calculus noted. 3. Moderate stool in the colon. 4. No small bowel obstruction. PQRS Compliance Statement: One or more of the following individualized dose reduction techniques were utilized for this examinat ion: 1. Automated exposure control 2. Adjustment of the mA and/or kV according to patient size 3. Use of iterative reconstruction technique Electronically signed by: Umer Sánchez MD (05/30/2021 5:27 PM) [facility]
[2021-05-30 17:49] VITALS: BP 126/60
--- NOTE | 2021-05-31 07:18 | EKG ---
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
== END 2021-05-30 17:49 | disposition home or self-care (01) ==
LOC: ER 14:36
DX: K59.01 Slow transit constipation (principal); G89.29 Other chronic pain; F17.210 Nicotine dependence, cigarettes, uncomplicated; Z90.89 Acquired absence of other organs
CPT/HCPCS: 74176; 99284

== ENCOUNTER 2021-08-14 21:35 | Emergency (ER) | payer MEDICAID ==
[~2021-08-14 21:35] MED LIST changes: +METH-570 PO; -METH10TA2 PO
[2021-08-14] MEDS ORDERED: CLIN300C9 PO (23:52)
--- NOTE | 2021-08-14 23:53 | PHYS DOC ---
Past History Past Medical History: No Pertinent History Additional Past Medical Histor: chronic shoulder pain Past Surgical History: Appendectomy, Other Additional Past Surgical Histo: HERNIA, SHOULDER Smoking: Cigarettes Alcohol Use: None Drug Use: Other Adult General Chief Complaint Chief Complaint: SKIN RASH/ABSCESS [facility] Patient is an otherwise healthy 46-year-old male who presents with a chief complaint of lower left extremity insect bite that happened 2 days ago with some swelling, warmth and discomfort, 6 out of 10, dull and achy in nature. Denies any other injuries. Denies any chest pain, shortness of breath, abdominal pain, nausea, vomiting, diarrhea or fever. States he would also like to have a name of a local doctor as he just got his insurance card. Review of Systems Review of Systems Review of systems otherwise unremarkable except noted in HPI Allergies Allergies Allergies Coded Allergies Type Severity Reaction Last Updated Verified No Known Drug Allergies 06/17/20 No Physical Exam Physical Exam Constitutional: Well developed, well nourished, no acute distress, non-toxic appearance. [] HENT: Normocephalic, atraumatic, bilateral external ears normal, oropharynx moist, no oral exudates, nose normal. [] Eyes: conjunctiva normal, no discharge. [] Neck: Normal range of motion, no tenderness, supple, no stridor. [] Cardiovascular:Heart rate regular rhythm, no murmur [] Lungs & Thorax: Bilateral breath sounds clear to auscultation [] Skin: Warm, dry, no erythema, no rash. [] Extremities: Lower left extremity with what appears to be in a lesion where bite occurred with surrounding warmth, and erythema suggestive of cellulitis out to about 3 cm from wound Neurologic: Alert and oriented X 3, normal motor function, normal sensory function, no focal deficits noted. [] Psychologic: Affect normal, judgement normal, mood normal. [] EKG EKG [] Radiology/Procedures Radiology/Procedures [] Heart Score C/O Chest Pain: No Risk Factors: Risk Factors: DM, Current or recent (<one month) smoker, HTN, HLP, family history of CAD, obesity. Risk Scores: Risk Factors: DM, Current or recent (<one month) smoker, HTN, HLP, family history of CAD, obesity. Course & Med Decision Making Course & Med Decision Making Patient is a 46-year-old male who presents with an insect bite, concerning for cellulitis Vital signs notable for mild tachycardia. Physical exam noted above. Patient started on pain medication and antibiotics in the ED. Given contact information for local primary care physicians and free clinics. Advised to follow-up first thing in the morning with your primary care physician and set up an appointment later in the week for wound reevaluation. Gave strict return precautions to the ED. Patient grateful, verbalized understanding and agreed to plan of discharge. [] Dragon Disclaimer Dragon Disclaimer This electronic medical record was generated, in whole or in part, using a voice recognition dictation system. Departure Departure: Impression: Primary Impression: Cellulitis of lower extremity Disposition: HOME / SELF CARE / HOMELESS Condition: GOOD Referrals: PCP,CAT (PCP) ЕКАТЕРИНА BRAVO MD Patient Instructions: Cellulitis Additional Instructions: Thank you for coming into the emergency department tonight and allowing us to take care of you. Please read the attached information above carefully to go over things we discussed. Please take all of your antibiotics as prescribed and until gone. Please follow-up with a primary care physician first thing the morning to set up a follow-up for wound reevaluation. Please come back to the ED with new or concerning symptoms as discussed. Scripts Clindamycin Hcl (CLINDAMYCIN HCL) 300 Mg Capsule 1 CAP PO Q6HRS for cellulitis for 10 Days, #40 CAP Prov: ANILA TEIXEIRA MD 08/14/21 ANILA TEIXEIRA MD Aug 14, 2021 23:53
[2021-08-15] MEDS ORDERED: CLINDAMYCIN HCL 150 MG CAPSULE PO ONE
[2021-08-15] MEDS ORDERED: cefTRIAXone IM 1 GM VIAL IM ONE
[2021-08-15] MEDS ORDERED: oxyCODONE/APAP 5/325 1 TAB TABLET PO ONE
[2021-08-15] MEDS ORDERED: LIDOCAINE 1% Multi-Dose 20 ML VIAL. ONE (00:16)
== END 2021-08-15 00:38 | disposition home or self-care (01) ==
LOC: ER 21:35
DX: L03.116 Cellulitis of left lower limb (principal); G89.29 Other chronic pain; F17.210 Nicotine dependence, cigarettes, uncomplicated
CPT/HCPCS: 96372; 99283; J0696